=== PATIENT | female | born 1990 | race Caucasian/White ===

== ENCOUNTER 2025-01-13 23:43 | Emergency (ER) | payer SELFPAY ==
[2025-01-14 00:23] LABS: Hematocrit 43.3 % (37.0-47.0); Hemoglobin 14.6 g/dL (12.0-15.0); Immature Granulocyte Percent A 0.3 % (0-0.5); Lymphocytes Absolute Auto 3.17 K/mm3 (0.9-3.2); Mean Corpuscular HGB Conc 33.7 g/dl (32-36); Mean Corpuscular Hemoglobin 28.9 pg (26-34); Mean Corpuscular Volume 85.7 fl (80-100); Nucleated Red Blood Cells Absolute Auto 0.000 K/mm3 (0.0-0.012); Nucleated Red Blood Cells Perc 0.0 % (0.0-0.2); Platelet Count Result 369 k/mm3 (150-375); Red Blood Count 5.05 M/mm3 (4.2-5.4); White Blood Count 11.5 K/mm3 (4.5-10.0)
[2025-01-14 00:32] LABS: Add Urine Microscopic? YES; Appearance Urine Clear (Clear); Glucose Urine UA Negative (Negative); Leukocyte Esterase Ur 2+ LEU/UL (Negative); Nitrate Urine Negative (Negative); Non Pathogenic Casts 0-2; Specific Grav Ur 1.033 (1.001-1.035)
[2025-01-14 00:35] LABS: BEDSIDEPREGUCG Negative (Negative)
[2025-01-14 00:46] VITALS: BP 146/90; PULSE 91; RESP 18; TEMP 36.8; O2SAT 99
[2025-01-14 00:48] LABS: Cannabinoid Screen Urine Negative (Negative)
[2025-01-14 00:54] LABS: Influenza A QL RT-PCR Negative (Negative); Influenza B QL RT-PCR Negative (Negative); RSV RNA, RT-PCR Negative (Negative); SARS-CoV-2 RNA PCR Negative (Negative)
[2025-01-14 01:13] LABS: Thyroid Stimulating Hormone Reflex 3.080 uIU/mL (0.465-4.68)
[2025-01-14] MEDS: LORazepam (*CRX) 0.5 MG TABLET PO (01:30)
--- OUTSIDE RECORDS SUMMARY | 2025-01-14 01:32 | XMS_ITS | Clinical Summary ---
Author Organization [facility] Address [address] [place] [address] Care Team Providers Care Air Conditioning Technician Name Role Phone Lenin Whitmorejeanette Purvis HOSPITAL MEDICAL ASSISTANT-TERMINAL CLERK Primary Care Pr ovider Source Comments [facility],non-owned Affiliates and Associated Physician Practices is amultiple site organization consisting of ambulatory clinics and hospital sitesin [place], [place], [place] and [place]. This disclosure is being madepursuant to the Care Everywhere program and may not contain all information available regarding this patient. Last updated 18.[facility] Allergies No known active allergies Medications * Be aware that medications may not be up to date on this document. Alwaysverify current medications with the patient. fluticasone propionate (FLONASE) 50 MCG/ACT nasal sprayIndication s:Allergic rhinitis with postnasal drip [place] 2 (two) sprays into each nostril once daily 16 g 2 Active Additional Information Patient not taking.Reported on 04/10/2022 FLUoxetine (PROzac) 20 MG capsuleIndicati ons:Other depression Take 1 (one) capsule by mouth once daily 30 capsule 3 Active Active Problems Problem Noted Date Diagnosed Date Abnormal ultrasound of spine 10/20/2015 Encounter for supervision of normal first in second trimester 09/30/2015 Encounter for anatomic survey 09/30/2015 Immunizations Immunization Administration Dates Next Due DTP 08/02/1995,04/13/1994,12/11/1993 ,10/06/1993 DTaP VACCINE IM (6wk-6yrs) 11/16/2015,11/06/2014 ,01/18/1997 HEP B VACCINE, PED/ADOL 03/14/2004,01/07/2004, MMR 02/07/2016,01/18/1997,12/11/1993 POLIO OPV 01/18/1997,04/13/1994,12/11/1993 ,10/06/1993 TDAP (7yrs+) 11/07/2015,12/30/2006 Family History Medical History Relation Name Comments Diabetes; unknown type Brother Diabetes; unknown type Father Diabetes; unknown type Maternal Grandfather Cancer - Breast Maternal Grandmother Relation Name Status Comments Brother Father Maternal Grandfather Maternal Grandmother Social History Tobacco Use Types Packs/Day Years Used Date Smoking Tobacco: Never Smokeless Tobacco: Never Tobacco Cessation:Counseling Given: Not Answered Alcohol Use Standard Drinks/Week Comments Not Currently 0 (1 standard drink = 0.6 oz pur e alcohol) PHQ-2 Answer Date Recorded PHQ2 TOTAL SCORE 2 11/23/2022 Comments No Sex and Gender Information Value Date Recorded Sex Assigned at Not on file Legal Sex Female 11:20 AM CDT Gender Identity Not on file Sexual Orientation Not on file Last Filed Vital Signs Vital Sign Reading Time Taken Comments Blood Pressure 115/62 09/19/2021 11:13 AM CDT Pulse 78 09/19/2021 11:13 AM CDT Temperature 36.2 C (97.2 F) 09/19/2021 11:13 AM CDT Respiratory Rate 17 09/19/2021 11:13 AM CDT Oxygen Saturation 99% 09/19/2021 11:13 AM CDT Inhaled Oxygen Concentration - - Weight 73 kg (161 lb) 09/19/2021 11:13 AM CDT Height 160 cm (5' 3) 09/19/2021 11:13 AM CDT Body Mass Index 28.52 09/19/2021 11:13 AM CDT Plan of Treatment Health Maintenance Due Date Last Done Comments HIV SCREENING 11/29/2007 HEPATITIS C SCREENING 11/24/2010 PAP SMEAR 2013 HPV VACCINE (1 - 3-dose SCDM series) 11/29/2019 COVID-19 VACCINE ( season) 2024 03/22/2021, 02/15/2021 DEPRESSION SCREENING 06/24/2024 11/23/2022, 04/10/20 INFLUENZA VACCINE (#1) 2025 DTAP/TDAP/TD VACCINES (10 - Td or Tdap) 11/15/2025 11/16/2015, 11/07/2015, 11/06/2014, Additional history exists ZOSTER VACCINE (1 of 2) 2042 HEPATITIS B VACCINE Completed 03/14/2004, 01/07/2004, 01/08/2003 HIB VACCINE Aged Out No longer eligi ble based on patient's age to complete this topic MENINGOCOCCAL (Group B) VACCINE SHARED DECISION-MAKING Aged Out No longer eligible based on patient's age to complete this topic MENINGOCOCCAL GROUPS A/C/Y/W VACCINE Aged Out No longer eligible based on patient's age to complete this topic PNEUMOCOCCAL VACCINE Aged Out No long er eligible based on patient's age to complete this topic Care Teams Air Conditioning Technician Relationship Specialty Start Date End Date Henrietta Whitmore, CRYSTAL-TERMINAL CLERK [address] [place] [address] PCP - General Nurse Practitioner 08/04/21
--- OUTSIDE RECORDS SUMMARY | 2025-01-14 01:32 | XMS_ITS | Encounter Summary ---
Author Organization [facility] Address [address] [place] [address] Care Team Providers Care Guide Plant Name Role Phone Henrietta Whitmore [facility] Primary Care Pr ovider Reason for Visit * Reason Onset Date Comments MEDICATION REFILL 12/25/2022 Encounter Details Date Type Department Care Team (Late st Contact Info) Description 12/25/2022 Refill [facility] Medical [facility] - Family Medicine [address] [place] [address] Henrietta Whitmore [facility] [address] [place] [address] MEDICATION REFILL Social History Tobacco Use Types Packs/Day Years Used Date Smoking Tobacco: Never Smokeless Tobacco: Never Alcohol Use Standard Drinks/Week Comments Not Currently 0 (1 standard drink = 0.6 oz pur e alcohol) PHQ-2 Answer Date Recorded PHQ2 TOTAL SCORE 2 11/23/2022 Comments No Sex and Gender Information Value Date Recorded Sex Assigned at Not on file Legal Sex Female 11:20 AM CDT Gender Identity Not on file Sexual Orientation Not on file documented as of this encounter Plan of Treatment Not on file documented as of this encounter Visit Diagnoses Diagnosis Other depression documented in this encounter Care Teams Guide Plant Relationship Specialty Start Date End Date Henrietta Whitmore APRN-CNP [address] [place] [address] PCP - General Nurse Practitioner 08/04/21 documented as of this encounter
--- OUTSIDE RECORDS SUMMARY | 2025-01-14 01:32 | XMS_ITS | Encounter Summary ---
Author Organization [facility] Address [address] [place] [address] Care Team Providers Care Construction Supervisor Name Role Phone [facility] Primary Care Pr ovider Reason for Visit * Reason Onset Date Comments MEDICATION REFILL 11/21/2022 Encounter Details Date Type Department Care Team (Late st Contact Info) Description 11/21/2022 Refill [facility] Medical [facility] - Family Medicine [address] [place] [address] [facility] [address] [place] [address] MEDICATION REFILL Social History Tobacco Use Types [...] depression documented in this encounter Care Teams Construction Supervisor Relationship Specialty Start Date End Date Henrietta Whitmore APRN-CNP [address] [place] [address] PCP - General Nurse Practitioner 08/04/21 documented as of this encounter
--- OUTSIDE RECORDS SUMMARY | 2025-01-14 01:32 | XMS_ITS | Encounter Summary ---
Author Organization [facility] Address [address] [place] [address] Care Team Providers Care Quality Assurance Coach Name Role Phone Henrietta [facility] Primary Care Pr ovider Reason for Visit * Reason Onset Date Comments MEDICATION REFILL 11/20/2022 Encounter Details Date Type Department Care Team (Late st Contact Info) Description 11/20/2022 Refill [facility] Medical [facility] - Family Medicine [address] [place] [address] Henrietta Whitmore [facility] [address] [place] [address] MEDICATION REFILL Social History Tobacco Use Types [...] depression documented in this encounter Care Teams Quality Assurance Coach Relationship Specialty Start Date End Date Henrietta Whitmore APRN-CNP [address] [place] [address] PCP - General Nurse Practitioner 08/04/21 documented as of this encounter
--- OUTSIDE RECORDS SUMMARY | 2025-01-14 01:32 | XMS_ITS | Clinical Summary ---
Author Organization [facility] Address [address] [place] [address] Care Team Providers Care Automatic Pinsetter Adjuster Name Role Phone Unavailable Primary Care Provider Unavailabl e Social History Tobacco Use Types Packs/Day Years Used Date Smoking Tobacco: Never Assessed Comments Unknown Sex and Gender Information Value Date Recorded Sex Assigned at Not on file Legal Sex Female 4:41 PM CDT Gender Identity Not on file Sexual Orientation Not on file Plan of Treatment Health Maintenance Due Date Last Done Comments Cervical Cancer Screening Pa p Smear (Age 30 to 64) Every 3 Years 1992 Annual Physical 11/29/1995 Hepatitis C 2010 DTaP, Tdap and Td Vaccines ( 1 - Tdap) 11/29/2011 Hepatitis B Vaccines (1 of 3 - 19+ 3-dose series) 11/29/2011 HPV Vaccines (1 - 3-dose SCD M series) 11/29/2019 Cervical Cancer Screening Pa p with HPV Testing (Age 30 to 64) Every 5 Years 2022 Cervical Cancer Screening with HPV 2022 COVID-19 Vaccine ( - 2023-2 5 season) 2024 Meningococcal B Vaccine Aged Out No l onger eligible based on patient's age to complete this topic Meningococcal Vaccine Aged Out No ana emily eligible based on patient's age to complete this topic Pneumococcal Vaccine: Pediat rics (0 to 5 Years) and At-Risk Patients (6 to 49 Years) Aged Out No longer eligible b ased on patient's age to complete this topic RSV Immunizations Under 20 Months Aged Out No longer eligible based on patient's age to complete this topic
--- OUTSIDE RECORDS SUMMARY | 2025-01-14 01:32 | XMS_ITS | Encounter Summary ---
Author Organization [facility] Address [address] [place] [address] Care Team Providers Care Coffee Maker Name Role Phone Henrietta Whitmore [facility] Primary Care Pr ovider Reason for Visit * Reason Onset Date Comments MEDICATION REFILL 07/12/2022 Encounter Details Date Type Department Care Team (Late st Contact Info) Description 07/12/2022 Refill [facility] Medical [facility] - Family Medicine [address] [place] [address] Henrietta Whitmore [facility] [address] [place] [address] MEDICATION REFILL Social History Tobacco Use Types Packs/Day Years Used Date Smoking Tobacco: Never Smokeless Tobacco: Never Alcohol Use Standard Drinks/Week Comments Not Currently 0 (1 standard drink = 0.6 oz pur e alcohol) PHQ-2 Answer Date Recorded PHQ2 TOTAL SCORE 2 04/09/2022 Comments No Sex and Gender Information Value Date Recorded Sex Assigned at Not on file Legal Sex Female 11:20 AM CDT Gender Identity Not on file Sexual Orientation Not on file documented as of this encounter Plan of Treatment Not on file documented as of this encounter Visit Diagnoses Diagnosis Other depression documented in this encounter Care Teams Coffee Maker Relationship Specialty Start Date End Date Henrietta Whitmore APRN-CNP [address] [place] [address] PCP - General Nurse Practitioner 08/04/21 documented as of this encounter
[2025-01-14 01:59] LABS: Alanine Aminotransferase 41 U/L (6-35); Albumin Level 5.1 g/dL (3.5-5.1); Alkaline Phosphatase 58 U/L (38-126); Anion Gap 12 mmol/L (4-12); Aspartate Amino Transferase 34 U/L (14-36); Bilirubin,Total 0.6 mg/dL (0.2-1.3); Blood Urea Nitrogen 11 mg/dL (7-17); Calcium 9.5 mg/dL (8.4-10.2); Carbon Dioxide 20 mmol/L (22-30); Chloride 103 mmol/L (98-107); Estimated CRCL calculation 100 ml/min; Estimated Glomerular Filt Rate > 60; Glucose 104 mg/dL (65-110); Potassium 3.7 mmol/L (3.4-5.0); Sodium 135 mmol/L (137-145); Total Protein 8.3 g/dL (6.3-8.2)
--- NOTE | 2025-01-14 02:29 | ED.PSYCH ---
HPI - Psych General Chief Complaint: Psychiatric Symptoms Stated Complaint: SI thoughts Time Seen by Provider: 01/14/25 01:16 Source: patient and family Mode of arrival: ambulatory Limitations: no limitations History of Present Illness HPI Narrative: Patient presents to the emergency department with reported increased anxiety. States she has a history of anxiety and depression. She had reported some suicidal thoughts such as wishing she was not here anymore. She states that she has a history of having obsessive thoughts and intrusive thoughts. She denies any specific plan she in general feels like she is spiraling. She previously been on medication but states she has been off of medications for a while due to side effects. Has never required mental health hospitalization. She also feels depressed. Decreased p.o. intake. She notes that she will experience chest pain and shortness of breath when she has panic attacks. She has been having low abdominal pain. She denies any dysuria she does note a tingling sensation has been having urinary urgency and frequency but no hematuria. She had vaginal discharge. Denies any homicidal ideation. She states that occasionally she will think she see something lot of the corner of her eye does not endorse any specific visual hallucinations. 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 HEAD: Normocephalic, atraumatic. EYES: Non injected, non icteric ENT: Nares clear, no rhinorrhea or epistaxis. Gross auditory acuity intact. NECK: Supple. No meningismus. CHEST: Speaking in full sentences. No respiratory distress. HEART: Regular rate and rhythm. . ABDOMEN: Soft, nondistended. EXTREMITIES: Normal range of motion. No lower extremity edema. SKIN: Warm, dry, no rash. NEURO: No focal deficits. Alert and oriented. Answering questions. Following commands. Normal speech without aphasia or dysarthria. PSYCH: Behavior: Calm, good eye contact . Mood is congruent with affect. Speech: Appropriate rate, quantity and volume. Has been having suicuidal thoughts without plan. Course Vital Signs Vital signs: Vital Signs Temperature 98.3 F 01/14/25 00:46 Pulse Rate 91 01/14/25 00:46 Respiratory Rate 18 01/14/25 00:46 Blood Pressure 146/90 H 01/14/25 00:46 Pulse Oximetry 99 01/14/25 00:46 Oxygen Delivery Room Air 01/14/25 00:46 Temperature 98.1 F 01/14/25 05:55 Pulse Rate 68 01/14/25 05:55 Respiratory Rate 18 01/14/25 05:55 Blood Pressure 121/74 01/14/25 05:55 Pulse Oximetry 99 01/14/25 05:55 Oxygen Delivery Room Air 01/14/25 00:46 MDM - Psych MDM Narrative Medical decision making narrative: Patient presents with report suicidal thoughts. She has a history of anxiety and depression and believes that she is becoming more anxious with obsessive and intrusive thoughts. Feels like she is spiraling. In the emergency department she is afebrile vital signs notable for mild hypertension. Mild leukocytosis. Mild ALT elevation in isolation. Normal renal function. Patient had endorsed feeling anxious and so a small p.o. dose of Ativan was given. She reported feeling better to the nurse after this. Abnormal or urinalysis. Reflexes to culture. Because she is having symptoms with a tingling sensation and increased urinary urgency and frequency and suprapubic pain, reasonable to treat. No previous culture to guide therapy. Will give 1st dose of Keflex as well as a dose of pyridium. Rest of course Rx. At this time patient is medically cleared for evaluation by psych/crisis team. After their extensive conversation, They felt comfortable with safety plan and discharge and this is reasonable. In discussion with patient, with input from crisis team, and based on my own professional judgment, I do believe patient would benefit from a short course of a few tablets of an anxiolytic while she attempts to establish with a healthcare provider for longer-term management an alternative strategies. She is given the name of a primary care physician as she does not currently have 1. Crisis team provides her resources. Differential Diagnosis Differential diagnosis: Likely suicidal ideation, depression and acute anxiety Lab Data Attestation: I reviewed the patient's lab results. 01/14/25 00:09 01/14/25 01:38 Labs: Lab Results 01/14/25 01/14/25 01/14/25 Range/Units 00:09 00:16 00:22 WBC 11.5 H (4.5-10.0) K/mm3 RBC 5.05 (4.2-5.4) M/mm3 Hgb 14.6 (12.0-15.0) g/dL Hct 43.3 (37.0-47.0) % MCV 85.7 (80-100) fl MCH 28.9 (26-34) pg MCHC 33.7 (32-36) g/dl RDW 12.9 (11.5-14.5) % Plt Count 369 (150-375) k/mm3 MPV 10.4 (7.4-10.4) fl Immature Gran % (Auto) 0.3 (0-0.5) % Neut % (Auto) 67.8 (45.5-73.1) % Lymph % (Auto) 27.6 (18.3-44.2) % [place] % (Auto) 3.8 (2.6-8.5) % Eos % (Auto) 0.1 (0-4.4) % Baso % (Auto) 0.4 (0.2-1.2) % Lymph # (Auto) 3.17 (0.9-3.2) K/mm3 [place] # (Auto) 0.4 (0.1-0.6) K/mm3 Eos # (Auto) 0.0 (0-0.3) K/mm3 Baso # (Auto) 0.1 (0.0-0.1) K/mm3 Abs Immat Gran (auto) 0.03 (0.00-0.031) K/mm3 Absolute Neuts (auto) 7.8 H (1.3-6.7) K/mm3 Absolute Nucleated RBC 0.000 (0.0-0.012) K/mm3 Nucleated RBC % 0.0 (0.0-0.2) % Sodium (137-145) mmol/L Potassium (3.4-5.0) mmol/L Chloride (98-107) mmol/L Carbon Dioxide (22-30) mmol/L Anion Gap (4-12) mmol/L BUN (7-17) mg/dL Creatinine (0.7-1.0) mg/dL Estim Creat Clear Calc ml/min Estimated GFR (59 - ) Glucose (65-110) mg/dL Calcium (8.4-10.2) mg/dL Total Bilirubin (0.2-1.3) mg/dL AST (14-36) U/L ALT (6-35) U/L Alkaline Phosphatase (38-126) U/L Total Protein (6.3-8.2) g/dL Albumin (3.5-5.1) g/dL TSH (Reflex) 3.080 (0.465-4.68) uIU/mL Urine Color Yellow (Yellow) Urine Appearance Clear (Clear) Urine pH 5.5 (5.0-9.0) Ur Specific [place] 1.033 (1.001-1.035) Urine Protein Trace (Negative) mg/dL Urine Glucose (UA) Negative (Negative) mg/dL Urine Ketones 3+ H (Negative) mg/dL Ur Blood (Man) Trace (Negative) Urine Nitrate Negative (Negative) Urine Bilirubin Negative (Negative) Urine Urobilinogen 1.0 (<2.0) mg/dL Leukocyte Esterase Rfl 2+ H (Negative) JENNI/UL Urine RBC 3-5 H (0-2) /hpf Urine WBC 21-50 H (0-3) /hpf Ur Squamous Epith Cells Few (Few) /hpf Urine Bacteria Rare /hpf Urine Casts 0-2 POC Urine HCG, Qual Negative (Negative) Urine Opiates Screen Negative (Negative) Urine Methadone Screen Negative (Negative) Ur Barbiturates Screen Negative (Negative) Ur Phencyclidine Scrn Negative (Negative) Ur Amphetamine Screen Negative (Negative) U Benzodiazepines Scrn Negative (Negative) Urine Cocaine Screen Negative (Negative) U Cannabinoids Screen Negative (Negative) Ethyl Alcohol < 10 (<10) mg/dL Influenza A (RT-PCR) Negative (Negative) Influenza B (RT-PCR) Negative (Negative) RSV (RT-PCR) Negative (Negative) SARS-CoV-2 RNA (RT-PCR) Negative (Negative) 01/14/25 Range/Units 01:38 WBC (4.5-10.0) K/mm3 RBC (4.2-5.4) M/mm3 Hgb (12.0-15.0) g/dL Hct (37.0-47.0) % MCV (80-100) fl MCH (26-34) pg MCHC (32-36) g/dl RDW (11.5-14.5) % Plt Count (150-375) k/mm3 MPV (7.4-10.4) fl Immature Gran % (Auto) (0-0.5) % Neut % (Auto) (45.5-73.1) % Lymph % (Auto) (18.3-44.2) % [place] % (Auto) (2.6-8.5) % Eos % (Auto) (0-4.4) % Baso % (Auto) (0.2-1.2) % Lymph # (Auto) (0.9-3.2) K/mm3 [place] # (Auto) (0.1-0.6) K/mm3 Eos # (Auto) (0-0.3) K/mm3 Baso # (Auto) (0.0-0.1) K/mm3 Abs Immat Gran (auto) (0.00-0.031) K/mm3 Absolute Neuts (auto) (1.3-6.7) K/mm3 Absolute Nucleated RBC (0.0-0.012) K/mm3 Nucleated RBC % (0.0-0.2) % Sodium 135 L (137-145) mmol/L Potassium 3.7 (3.4-5.0) mmol/L Chloride 103 (98-107) mmol/L Carbon Dioxide 20 L (22-30) mmol/L Anion Gap 12 (4-12) mmol/L BUN 11 (7-17) mg/dL Creatinine 0.65 L (0.7-1.0) mg/dL Estim Creat Clear Calc 100 ml/min Estimated GFR > 60 (59 - ) Glucose 104 (65-110) mg/dL Calcium 9.5 (8.4-10.2) mg/dL Total Bilirubin 0.6 (0.2-1.3) mg/dL AST 34 (14-36) U/L ALT 41 H (6-35) U/L Alkaline Phosphatase 58 (38-126) U/L Total Protein 8.3 H (6.3-8.2) g/dL Albumin 5.1 (3.5-5.1) g/dL TSH (Reflex) (0.465-4.68) uIU/mL Urine Color (Yellow) Urine Appearance (Clear) Urine pH (5.0-9.0) Ur Specific [place] (1.001-1.035) Urine Protein (Negative) mg/dL Urine Glucose (UA) (Negative) mg/dL Urine Ketones (Negative) mg/dL Ur Blood (Man) (Negative) Urine Nitrate (Negative) Urine Bilirubin (Negative) Urine Urobilinogen (<2.0) mg/dL Leukocyte Esterase Rfl (Negative) JENNI/UL Urine RBC (0-2) /hpf Urine WBC (0-3) /hpf Ur Squamous Epith Cells (Few) /hpf Urine Bacteria /hpf Urine Casts POC Urine HCG, Qual (Negative) Urine Opiates Screen (Negative) Urine Methadone Screen (Negative) Ur Barbiturates Screen (Negative) Ur Phencyclidine Scrn (Negative) Ur Amphetamine Screen (Negative) U Benzodiazepines Scrn (Negative) Urine Cocaine Screen (Negative) U Cannabinoids Screen (Negative) Ethyl Alcohol (<10) mg/dL Influenza A (RT-PCR) (Negative) Influenza B (RT-PCR) (Negative) RSV (RT-PCR) (Negative) SARS-CoV-2 RNA (RT-PCR) (Negative) Discharge Plan Discharge Clinical Impression: Suicidal thoughts, Elevated ALT measurement, Anxiousness, UTI (urinary tract infection) Patient Disposition: Home Condition: Stable Instructions: Antibiotic Form, Urinary Tract Infection in Women (DC), Generalized Anxiety Disorder (ED), Anxiety (ED), Suicide Prevention (ED) Additional Instructions: Pyridium/phenazopyridine can help with the pain you are experiencing from a urinary tract infection. It can discolor your urine and tears (turn them orange). Do not wear contact lenses while taking this medication. Your course of antibiotic has also been prescribed. You received the 1st dose of both of these medications well in the emergency department. Until you are able to establish with someone, a short course of an anti anxiety medication has been prescribed. Follow-up with a primary care physician. Because you do not have 1 the name of a doctor is listed below. You are also being given resources by our crisis team. Patient Language: Chilean Prescriptions: New phenazopyridine 100 mg tablet 100 mg PO TID PRN (Reason: pain) 2 Days Qty: 5 0RF Rx Instructions: after meals; rec'd first dose in ED overnight cephalexin 500 mg tablet 500 mg PO Q6H 5 Days Qty: 19 0RF Rx Instructions: received first dose in ED lorazepam [Ativan] 0.5 mg tablet 0.5 mg PO DAILY PRN (Reason: anxiety) Qty: 10 0RF Follow-up/Referrals: PHYSICIAN,TELEVISION SERVICE ENGINEER [Primary Care Provider] - Aleks Kumar MD [Physician] - Stand Alone Forms: Work/School Release IP Time of Disposition: 05:42
--- NOTE | 2025-01-14 02:34 | PC.NURSE ---
Contacted Crisis and referral has bleed placed. Referral placed by Yessi.
[2025-01-14 03:19] VITALS: BP 132/71; PULSE 81; RESP 18; TEMP 36.6; O2SAT 98
[2025-01-14] MEDS: PHENAZOPYRIDINE HCL 100 MG TABLET PO (03:19)
[2025-01-14] MEDS: CEPHALEXIN 500 MG CAPSULE PO (03:19)
--- NOTE | 2025-01-14 03:56 | PC.NURSE ---
Crisis here to evaluate patient
[2025-01-14 05:55] VITALS: BP 121/74; PULSE 68; RESP 18; TEMP 36.7; O2SAT 99
== END 2025-01-14 05:58 | disposition home or self-care (01) ==
PROVIDERS: Emergency Provider Student in an Organized Health Care Education/Training Program
DX: R45.851 Suicidal ideations (principal); F41.9 Anxiety disorder, unspecified; F32.A Depression, unspecified; Z11.52 Encounter for screening for COVID-19
CPT/HCPCS: 36415; 80053; 80307; 81001; 81025; 82077; 84443; 85025; 87637; 99284; A9270

== ENCOUNTER 2025-01-17 15:12 | Emergency (ER) | payer SELFPAY ==
--- OUTSIDE RECORDS SUMMARY | 2025-01-17 15:15 | XMS_ITS | Clinical Summary ---
Author Organization [facility] Address [address] [place] [address] Care Team Providers Care Actuarial Analyst Name Role Phone Unavailable Primary Care Provider [...]
--- OUTSIDE RECORDS SUMMARY | 2025-01-17 15:15 | XMS_ITS | Patient Health Record ---
Author Organization [facility] Address [address] [address] Care Team Providers Care Rotor Casting Machine Setup Operator Name Role Phone LUZ CARLISLE Primary Care Provider Damon Neil Unavailable [phone] Reason For Referral No Information Social History Tobacco Use: Social History Observation Description Date Details (start date - stop date) Never Smoker NA - NA TU Question Answer Notes Are you a smoker never smoker Problems Problem Type SNOMED Code ICD Code Onset Dates Problem Status W/U Status Risk Notes Problem Right thyroid nodule (E04.1) Active confirmed Plan Of Treatment No Information Medical (General) History Medical History History ICD Code Thyroid Nodule Hyperglycemia Surgical History Surgery Date(Month/Year) C section 02/06
--- OUTSIDE RECORDS SUMMARY | 2025-01-17 15:15 | XMS_ITS | Encounter Summary ---
Author Organization [facility] Address [address] [place] [address] Care Team Providers Care Net Lead Developer Name Role Phone [facility] Primary Care Pr ovider Reason for Visit * Reason Onset Date Comments MEDICATION REFILL 12/25/2022 Encounter Details Date Type Department Care Team (Late st Contact Info) Description 12/25/2022 Refill [facility] Medical [facility] - Family Medicine [address] [place] [address] [facility] [address] [place] [address] MEDICATION REFILL Social History Tobacco Use Types [...] depression documented in this encounter Care Teams Net Lead Developer Relationship Specialty Start Date End Date Henrietta Whitmore APRN-CNP [address] [place] [address] PCP - General Nurse Practitioner 08/04/21 documented as of this encounter
--- OUTSIDE RECORDS SUMMARY | 2025-01-17 15:15 | XMS_ITS | Clinical Summary ---
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 reviewed and interpreted this examination/study. > Interpreting Provider: Flakita Rivero on 01/15/2025 8:25 AM Ruddy Cao DO DIAGNOSTIC IMAGING ORDERABLE S Final Result * XR Tibia Fibula Right 2Vw (01/15/2025 12:02 AM CDT) Anatomical Region Laterality Modality Lower Extremity Digital Radiogra phy 01/15/2025 2:41 AM CDT Impressions 01/15/2025 8:27 AM CDT IMPRESSION: No acute tibial or fibular fracture identified. Report dictated by Estiven Wilson DO (dental resident). Flakita Claudio have personally reviewed and interpreted this examination/study. > Interpreting Provider: Flakita Rivero on 01/15/2025 8:27 AM Narrative 01/15/2025 8:27 AM CDT PROCEDURE: XR TIBIA FIBULA RIGHT 2VW, DATE/TIME OF EXAM: 01/15/2025 12:02 AM, LOCATION [facility] INDICATION: T14.90XA: Trauma ADDITIONAL CLINICAL INFORMATION: Ordering Provider Reason For Exam: ro frx, DETENTION COMPARISON: None. FINDINGS: The tibia and fibula are intact without evidence of acute fracture. Bone density and texture are normal. No soft tissue swelling is present. Procedure Note Flakita Moreno MD - 01/15/2025 PROCEDURE: XR TIBIA FIBULA RIGHT 2VW, DATE/TIME OF EXAM: 2:02 AM, LOCATION [facility] INDICATION: T14.90XA: Trauma ADDITIONAL CLINICAL INFORMATION: Ordering Provider Reason For Exam: ro frx, DETENTION COMPARISON: None. FINDINGS: The tibia and fibula are intact without evidence of acute fracture. Bone density and texture are normal. No soft tissue swelling is present. IMPRESSION: No acute tibial or fibular fracture identified. Report dictated by Estiven Wilson DO (dental resident). Flakita Claudio have personally reviewed and interpreted this examination/study. > Interpreting Provider: Flakita Rivero on 01/15/2025 8:27 AM Ruddy R Bisesi DO DIAGNOSTIC IMAGING ORDERABLE S Final Result * XR CHEST 1VW PORTABLE (01/15/2025 12:01 AM CDT) Anatomical Region Laterality Modality Chest Digital Radiogra phy 01/15/2025 2:34 AM CDT Impressions 01/15/2025 8:23 AM CDT IMPRESSION: No radiographic evidence of acute cardiopulmonary abnormality. This report was dictated by Hudson Galvan M.D. (/IR Resident). Flakita Claudio have personally reviewed and interpreted this examination/study. > Interpreting Provider: Flakita Rivero on 01/15/2025 8:23 AM Narrative 01/15/2025 8:23 AM CDT PROCEDURE: XR CHEST 1VW PORTABLE, DATE/TIME OF EXAM: 01/15/2025 12:01 AM, [facility] INDICATION: T14.90XA: Trauma COMPARISON: None. TECHNIQUE: Single portable frontal radiograph of the chest was obtained with the patient in the semierect position. FINDINGS Low lung volumes leads to bronchovascular crowding bilaterally. There is no focal consolidation, pleural effusion, or pneumothorax. Prominent lucency surrounding the heart likely representing mach effect given lack of streaky linear opacities elsewhere and no complaints of chest pain. The mediastinum otherwise appears normal. The visible bony thorax is intact. Procedure Note Flakita Moreno MD - 01/15/2025 PROCEDURE: XR CHEST 1VW PORTABLE, DATE/TIME OF EXAM: 01/15/2025 12:01AM, LOCATION [facility] INDICATION: T14.90XA: Trauma COMPARISON: None. TECHNIQUE: Single portable frontal radiograph of the chest was obtained with the patient in the semierect position. FINDINGS Low lung volumes leads to bronchovascular crowding bilaterally. There isno focal consolidation, pleural effusion, or pneumothorax. Prominentlucency surrounding the heart likely representing mach effect given lack ofstreaky linear opacities elsewhere and no complaints of chest pain. Themediastinum otherwise appears normal. The visible bony thorax is intact. IMPRESSION: No radiographic evidence of acute cardiopulmonary abnormality. This report was dictated by Hudson Galvan M.D. (/IR Resident). I, Flakita Rivero have personally reviewed and interpreted this examination/study. > Interpreting Provider: Flakita Rivero on 01/15/2025 8:23 AM Ruddy Cao DO DIAGNOSTIC IMAGING ORDERABLE S Final Result * TYPE + SCREEN PANEL (01/14/2025 11:36 PM CDT) Antibody Screen NEG 12:23 AM CDT [facility] ABO Rh O POS 01/15/2025 12:23 AM CDT [facility] Blood Bank BLOOD SPECIMEN / Unknown Venipuncture / Unknown 01/14/2025 11:36 PM CDT 01/14/2025 11:46 PM CDT [facility]OD [facility] ORDERABLES Final Result Performing Organization Address City/[facility]/ZIP Co de Phone Number [facility] [address] [place] [address], [facility] [phone] * PTT (01/14/2025 11:36 PM CDT) APTT 26.4 23.0 - 38.4 Seconds 01/15/2025 12:23 AM CDT [facility] Comment:Suggested therapeuti c range for full dose I.V. unfractionated heparin therapy for venous thromboembolism is 71 to 109 seconds. Blood BLOOD SPECIMEN / Unknown Venipuncture / Unknown 01/14/2025 11:36 PM CDT 01/14/2025 11:49 PM CDT [facility] LAB - COAGULATION ORDERABLES Final Result [facility] [address] [place] [address], [place] [phone] * PT-INR (01/14/2025 11:36 PM CDT) PT 13.0 12.1 - 14.8 Seconds 01/15/2025 12:[facility].0 See Comment 01/15/2025 12:23 AM [facility] Comment:The suggested therap eutic range for standard coumadin (warfarin) therapy is an INR of 2.0-3.0. For high-risk patients (Mechanical Mitral Valve Prosthesis, etc.), the suggested prophylactic therapeutic range is an INR of 2.5-3.5. Blood BLOOD SPECIMEN / Unknown Venipuncture / Unknown 01/14/2025 11:36 PM CDT 01/14/2025 11:49 PM CDT us Ruddy Cao DO LAB - COAGULATION ORDERABLES Final Result [facility] [address] [place] [address], [facility] [phone] * (ABNORMAL) CBC W AUTO DIFFERENTIAL (01/14/2025 11:36 PM CDT) WBC 18.4(H) 4.0 - 10.7 x10E9/L 01/14/2025 11:56 PM [facility] RBC Count 4.92 3.90 - 5.20 x10E12/L 01/14/2025 11:56 PM [facility] Hemoglobin 14.1 11.9 - 15.8 g/dL 01/14/2025 11:56 PM [facility] Hematocrit 41.2 34.8 - 46.1 % 01/14/2025 11:56 PM [facility] MCV 83.7 80.0 - 98.0 fL 01/14/2025 11:56 PM [facility] MCH 28.7 26.7 - 33.6 pg 01/14/2025 11:56 PM [facility] MCHC 34.2 31.7 - 36.3 g/dL 01/14/2025 11:56 PM [facility] RDW-CV 12.9 11.3 - 14.8 % 01/14/2025 11:56 PM [facility] Platelet Count 351 150 - 420 x10E9/L 01/14/2025 11:56 PM [facility] MPV 11.0 7.8 - 11.4 fL 01/14/2025 11:56 PM [facility] Neutrophil % 82.6(H) 41.0 - 74.0 % 01/14/2025 11:56 PM [facility] Lymphocyte % 12.7(L) 17.0 - 47.0 % 01/14/2025 11:56 PM [facility] Monocyte % 3.9 3.0 - 11.0 % 01/14/2025 11:56 PM [facility] Eosinophil % 0.1 0.0 - 7.0 % 01/14/2025 11:56 PM [facility] Basophil % 0.4 0.0 - 1.6 % 01/14/2025 11:56 PM [facility] Immature Granulocytes % 0.3 0.0 - 1.0 % 01/14/2025 11:56 PM [facility] Neutrophil Absolute 15.18(H) 1.60 - 7.50 x10E9/L 01/14/2025 11:56 PM [facility] Lymphocyte Absolute 2.33 1.00 - 4.40 x10E9/L 01/14/2025 11:56 PM [facility] Monocyte Absolute 0.72 0.15 - 1.00 x10E9/L 01/14/2025 11:56 PM [facility] Eosinophil Absolute 0.02 0.00 - 0.60 x10E9/L 01/14/2025 11:56 PM [facility] Basophil Absolute 0.07 0.00 - 0.13 x10E9/L 01/14/2025 11:56 PM [facility] Blood BLOOD SPECIMEN / Unknown Venipuncture / Unknown 01/14/2025 11:36 PM CDT 01/14/2025 11:49 PM [facility] [place][NOTE 2] Ruddy Cao DO LAB - HEMATOLOGY ORDERABLES Final Result [facility] [address] [place] [address], [facility] [phone] * (ABNORMAL) BASIC METABOLIC PANEL (CALCIUM TOTAL) (01/14/2025 11:36 PM CDT) BUN 12 7 - 26 mg/dL 01/15/2025 12:20 AM [facility] Creatinine 0.67 0.56 - 0.96 mg/dL 01/15/2025 12:20 AM [facility] Sodium 138 136 - 145 mmol/L 01/15/2025 12:20 AM [facility] Potassium 3.5 3.5 - 4.5 mmol/L 01/15/2025 12:20 AM [facility] Chloride 107 98 - 107 mmol/L 01/15/2025 12:20 AM [facility] CO2 20(L) 22 - 29 mmol/L 01/15/2025 12:20 AM [facility] Glucose 95 70 - 99 mg/dL 01/15/2025 12:20 AM [facility] Calcium 9.2 8.4 - 10.2 mg/dL 01/15/2025 12:20 AM [facility] Anion Gap 11 6 - 16 01/15/2025 12:20 AM [facility] BUN/Creatinine Ratio 18 7 - 23 01/15/2025 12:20 AM [facility] Osmolality Calculated 286 275 - 295 mOsm/kg 01/15/2025 12:20 AM [facility] eGFR by CKD-EPI >90 >=90 mL/min/1.7 3 m2 01/15/2025 12:20 AM [facility] Comment:Estimated Glomerular Filtration Rate (eGFR) calculated using the CKD-EPI Creatinine Equation (2020), per the National Kidney Foundation and [place] Society of Nephrology recommendations. Blood BLOOD SPECIMEN / Unknown Venipuncture / Unknown 01/14/2025 11:36 PM CDT 01/14/2025 11:49 PM CDT us Ruddy Cao DO LAB - CHEMISTRY ORDERABLES F inal Result [facility] [address] [place] [address], [facility] [phone] * LIPASE BLOOD (01/14/2025 11:36 PM CDT) Lipase 24 8 - 78 U/L 01/15/2025 12:20 AM CDT [facility] Blood BLOOD SPECIMEN / Unknown Venipuncture / Unknown 01/14/2025 11:36 PM CDT 01/14/2025 11:49 PM CDT Narrative [facility] - 01/15/2025 12:20 AM CDT Lipase results from the [employer] Alinity analyzer may not be comparable with other methodologies. [employer] LAB - CHEMISTRY ORDERABLES F inal Result Performing Organization Address City/[facility]/ZIP Co de Phone Number [address] [address], [facility] [phone] * ALCOHOL ETHYL BLOOD (01/14/2025 11:36 PM CDT) Ethanol (mg/dL) <10 <10 mg/dL 12:20 AM CDT [facility] Ethanol Calculated (g/dL) <0.010 <=0.010 g/dL 01/15/2025 12:20 AM CDT [facility] Blood BLOOD SPECIMEN / Unknown Venipuncture / Unknown 01/14/2025 11:36 PM CDT 01/14/2025 11:49 PM CDT Narrative [facility] - 01/15/2025 12:20 AM CDT Ethanol Interp <10: None Detected. Depression of WHEELMAN: >100 mg/dl Potentially Critical: >250 mg/dl Potentially Fatal >400 mg/dl Ethanol in the patient's blood will contribute to the osmolar gap. Ethanol's contribution to the osmolar gap can be estimated by dividing the concentration of ethanol in mg/dL by 4.6. This test is for clinical use only and does not equal a JEWELL for legal purposes. [employer] DO LAB - CHEMISTRY ORDERABLES F inal Result Performing Organization Address City/[facility]/ZIP Co de Phone Number [address] [address], [place] [phone] from Last 3 Months Insurance [employer] Care Teams Administration Physician Relationship Specialty Start Date End Date Henrietta Whitmore, PROFESSIONAL DEVELOPMENT DIRECTOR-[employer] TEXTILE SUPERVISOR [address] [place] [address] PCP - General Nurse Practitioner 08/04/21
--- OUTSIDE RECORDS SUMMARY | 2025-01-17 15:15 | XMS_ITS | Encounter Summary ---
Author Organization [facility] Address [address] [place] [address] Care Team Providers Care Waiter/Waitress Counter Name Role Phone Henrietta Whitmore [facility] Primary Care Pr ovider Reason for Visit * Reason Onset Date Comments MEDICATION REFILL 11/20/2022 Encounter Details Date Type Department Care Team (Late st Contact Info) Description 11/20/[address] [facility] Medical [facility] - Family Medicine [address] [place] [address] Henrietta Whitmore [facility] [address] [place] [address] MEDICATION REFILL Social History Tobacco Use Types [...] depression documented in this encounter Care Teams Waiter/Waitress Counter Relationship Specialty Start Date End Date Henrietta Whitmore APRN-CNP [address] [place] [address] PCP - General Nurse Practitioner 08/04/21 documented as of this encounter
--- OUTSIDE RECORDS SUMMARY | 2025-01-17 15:15 | XMS_ITS | Encounter Summary ---
Author Organization [facility] Address [address] [place] [address] Care Team Providers Care Transit Clerk Name Role Phone Henrietta Whitmore [facility] Primary Care Pr ovider Reason for Visit * Reason Onset Date Comments MEDICATION REFILL 11/21/2022 Encounter Details Date Type Department Care Team (Late st Contact Info) Description 11/21/2022 Refill [facility] Medical [facility] - Family Medicine [address] [place] [address] Henrietta Whitmore [facility] [address] [place] [address] MEDICATION REFILL Social History Tobacco Use Types [...] depression documented in this encounter Care Teams Transit Clerk Relationship Specialty Start Date End Date Henrietta Whitmore APRN-CNP [address] [place] [address] PCP - General Nurse Practitioner 08/04/21 documented as of this encounter
--- OUTSIDE RECORDS SUMMARY | 2025-01-17 15:15 | XMS_ITS | Encounter Summary ---
Author Organization [facility] Address [address] [place] [address] Care Team Providers Care Grocery Store Clerk Name Role Phone [facility]etta [facility] Primary Care Pr ovider Reason for Visit * Reason Onset Date Comments MEDICATION REFILL 07/12/2022 Encounter Details Date Type Department Care Team (Late st Contact Info) Description 07/12/2022 Refill [facility] Medical [facility] - Family Medicine [address] [place] [address] Henrietta [facility] [address] [place] [address] MEDICATION REFILL Social History Tobacco Use Types [...] depression documented in this encounter Care Teams Grocery Store Clerk Relationship Specialty Start Date End Date Henrietta Whitmore APRN-CNP [address] [place] [address] PCP - General Nurse Practitioner 08/04/21 documented as of this encounter
[2025-01-17 15:18] VITALS: BP 157/96; PULSE 97; RESP 18; TEMP 37.3; O2SAT 99
[2025-01-17 15:57] VITALS: BP 118/68; PULSE 74; RESP 16; TEMP 36.6; O2SAT 100
--- OUTSIDE RECORDS SUMMARY | 2025-01-17 16:20 | XMS_ITS | Clinical Summary ---
Author Organization [facility] Address [address] [place] [id number] Care Team Providers Care Nuclear Control Room Operator Name Role Phone Unavailable Primary Care Provider [...]
--- OUTSIDE RECORDS SUMMARY | 2025-01-17 16:20 | XMS_ITS | Encounter Summary ---
Author Organization [facility] Address [address] [place] [address] Care Team Providers Care Grounds Manager Name Role Phone Henrietta Whitmore [facility] Primary Care Pr ovider Reason for Visit * Reason Onset Date Comments MEDICATION REFILL 12/25/2022 Encounter Details Date Type Department Care Team (Late st Contact Info) Description 12/25/2022 Refill [facility] Medical [facility] - Family Medicine [address] [place] [address] Henrietta Whitmore [facility] [address] [place] [address] MEDICATION REFILL Social History Tobacco Use Types [...] depression documented in this encounter Care Teams Grounds Manager Relationship Specialty Start Date End Date Henrietta Whitmore APRN-CNP [address] [place] [address] PCP - General Nurse Practitioner 08/04/21 documented as of this encounter
--- OUTSIDE RECORDS SUMMARY | 2025-01-17 16:20 | XMS_ITS | Encounter Summary ---
Author Organization [facility] Address [address] [place] [address] Care Team Providers Care Rug Cutter Helper Name Role Phone [facility] Primary Care Pr ovider Reason for Visit * Reason Onset Date Comments MEDICATION REFILL 11/20/2022 Encounter Details Date Type Department Care Team (Late st Contact Info) Description 11/20/2022 Refill [facility] Medical [facility] - Family Medicine [address] [place] [address] Henrietta [facility] [address] [place] [address] MEDICATION REFILL Social History Tobacco Use Types [...] depression documented in this encounter Care Teams Rug Cutter Helper Relationship Specialty Start Date End Date Henrietta Whitmore APRN-CNP [address] [place] [address] PCP - General Nurse Practitioner 08/04/21 documented as of this encounter
--- OUTSIDE RECORDS SUMMARY | 2025-01-17 16:20 | XMS_ITS | Encounter Summary ---
Author Organization [facility] Address [address] [place] [address] Care Team Providers Care Windsurfing Instructor Name Role Phone Henrietta Whitmore [facility] Primary Care Pr ovider Reason for Visit * Reason Onset Date Comments MEDICATION REFILL 11/21/2022 Encounter Details Date Type Department Care Team (Late st Contact Info) Description 11/21/2022 Refill [facility] Medical [facility] - Family Medicine [address] [place] [address] Henrietta Whitmore [facility] [address] [place] [address] MEDICATION REFILL Social History Tobacco Use Types [...] depression documented in this encounter Care Teams Windsurfing Instructor Relationship Specialty Start Date End Date Henrietta Whitmore APRN-CNP [address] [place] [address] PCP - General Nurse Practitioner 08/04/21 documented as of this encounter
--- OUTSIDE RECORDS SUMMARY | 2025-01-17 16:20 | XMS_ITS | Encounter Summary ---
Author Organization [facility] Address [address] [place] [address] Care Team Providers Care Skills Trainer Name Role Phone Henrietta Whitmore [facility] Primary Care Pr ovider Reason for Visit * Reason Onset Date Comments MEDICATION REFILL 07/12/2022 Encounter Details Date Type Department Care Team (Late st Contact Info) Description 07/12/2022 Refill [facility] Medical [facility] - Family Medicine [address] [place] [address] Henrietta Whitmore [facility] [address] [place] [address] MEDICATION REFILL Social History Tobacco Use Types [...] depression documented in this encounter Care Teams Skills Trainer Relationship Specialty Start Date End Date Henrietta Whitmore APRN-CNP [address] [place] [address] PCP - General Nurse Practitioner 08/04/21 documented as of this encounter
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
== END 2025-01-17 17:23 | disposition home or self-care (01) ==
PROVIDERS: Emergency Provider Emergency Medicine
DX: F41.9 Anxiety disorder, unspecified (principal); F32.A Depression, unspecified
CPT/HCPCS: 99283

== ENCOUNTER 2025-01-21 16:12 | Emergency (ER) | payer SELFPAY ==
--- NOTE | ~2025-01-21 | CT_ITS ---
EXAMINATION: CT abdomen pelvis w con DATE: 01/21/2025 20:10 INDICATION: Lower abdominal pain. Hematuria. TECHNIQUE: Computed tomography (CT) of the abdomen and pelvis was performed with 100 cc Omnipaque 350 intravenous contrast. The dose-length product was 401.29 mGy-cm. Automated exposure control and iter ative reconstruction technique were employed. Automated exposure control and iterative reconstruction technique were employed. COMPARISON: No prior studies for comparison. FINDINGS: Lung bases unremarkable. Heart size normal. No significant pleural or pericardial effusion. Fatty infiltration of the liver. The spleen, pancreas, adrenal glands and kidneys are unremarkable. Gallbladder is contracted. Nonobstructive bowel gas pattern. Normal appendix. No abnormal pelvic mass es or fluid collections. No significant vascular abnormality. No lymphadenopathy. No free air or free fluid. No acute osseous abnormality. IMPRESSION: 1. No acute abdominal abnormality. Reviewed, dictated and finalized at location B.
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
--- OUTSIDE RECORDS SUMMARY | 2025-01-21 16:14 | XMS_ITS | Encounter Summary ---
Author Organization [facility] Address [address] [place] [address] Care Team Providers Care Professor Of Environmental Science Name Role Phone Henrietta Whitmore APRN-ASSOCIATE DIRECTOR OF BIOSTATISTICS Primary Care Pr ovider Reason for Visit * Reason Onset Date Comments MEDICATION REFILL 07/12/2022 Encounter Details Date Type Department Care Team (Late Contact Info) Description 07/12/2022 Refill [facility] Family Medicine [address] [place] [phone] Henrietta Whitmore APRN-ASSOCIATE DIRECTOR OF BIOSTATISTICS [address] [place] [address] MEDICATION REFILL Social History Tobacco Use Types [...] as of this encounter Plan of Treatment Upcoming Encounters Date Type Department Care Team (Late Contact Info) Description 01/29/2025 10:15 AM CDT Office Visit [address] [phone] [facility] [address] [place] [address] 02/02/2025 10:45 AM CDT Office Visit [facility] - Family Medicine [address] [facility] [place] [phone] Henrietta Whitmore APRN-CNP [address] [place] [address] documented as of this encounter Visit Diagnoses Diagnosis Other depression documented in this encounter Care Teams Professor Of Environmental Science Relationship Specialty Start Date End Date Henrietta Whitmore APRN-CNP [address] [place] [address] PCP - General Nurse Practitioner 08/04/21 documented as of this encounter
--- OUTSIDE RECORDS SUMMARY | 2025-01-21 16:14 | XMS_ITS | Encounter Summary ---
Author Organization [facility] Address [address] [place] [address] Care Team Providers Care Federal Law Clerk Name Role Phone Henrietta Whitmore APRNARABIC LINGUIST Primary Care Pr ovider Reason for Visit * Reason Onset Date Comments MEDICATION REFILL 12/25/2022 Encounter Details Date Type Department Care Team (Late Contact Info) Description 12/25/2022 Refill [facility] Family Medicine [address] [place] [phone] Henrietta Whitmore APRN-ARABIC LINGUIST [address] [place] [address] MEDICATION REFILL Social History Tobacco Use Types [...] Description 01/29/2025 10:15 AM CDT Office Visit [address] [phone] [facility] [address] [place] [address] 02/02/2025 10:45 AM CDT Office Visit [facility] - Family Medicine [address] [place] [phone] Henrietta Whitmore APRN-CNP [address] [place] [address] documented as of this encounter Visit Diagnoses Diagnosis Other depression documented in this encounter Care Teams Federal Law Clerk Relationship Specialty Start Date End Date Henrietta Whitmore APRN-CNP [address] [place] [address] PCP - General Nurse Practitioner 08/04/21 documented as of this encounter
--- OUTSIDE RECORDS SUMMARY | 2025-01-21 16:14 | XMS_ITS | Encounter Summary ---
Author Organization [facility] Address [address] [place] [address] Care Team Providers Care Medical Surgical Tech Name Role Phone Henrietta Whitmore [facility] C[facility] DIRECTOR Primary Care Pr ovider Reason for Visit * Reason Onset Date Comments MEDICATION REFILL 11/20/2022 Encounter Details Date Type Department Care Team (Late Contact Info) Description 11/20/2022 Refill [facility] Family Medicine [address] [place] [phone] Henrietta Whitmore APRN-[facility] DIRECTOR [address] [place] [address] MEDICATION REFILL Social History Tobacco Use Types [...] Description 01/29/2025 10:15 AM CDT Office Visit [address] [phone] [facility] [address] [place] [address] 02/02/2025 10:45 AM CDT Office Visit [facility] - Family Medicine [address] [facility] [place] [phone] Henrietta Whitmore APRN-CNP [address] [place] [address] documented as of this encounter Visit Diagnoses Diagnosis Other depression documented in this encounter Care Teams Medical Surgical Tech Relationship Specialty Start Date End Date Henrietta Whitmore APRN-CNP [address] [place] [address] PCP - General Nurse Practitioner 08/04/21 documented as of this encounter
--- OUTSIDE RECORDS SUMMARY | 2025-01-21 16:14 | XMS_ITS | Clinical Summary ---
Author Organization [facility] Address [address] [place] [id number] Care Team Providers Care Chemist Intern Name Role Phone Unavailable Primary Care Provider [...]
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
--- OUTSIDE RECORDS SUMMARY | 2025-01-21 16:14 | XMS_ITS | Encounter Summary ---
Author Organization [facility] Address [address] [place] [address] Care Team Providers Care Sign Maintenance Name Role Phone Henrietta Whitmore APRNBODY AND FENDER WORKER Primary Care Pr ovider Reason for Visit * Reason Onset Date Comments MEDICATION REFILL 11/21/2022 Encounter Details Date Type Department Care Team (Late Contact Info) Description 11/21/2022 Refill [facility] Family Medicine [address] [place] [id number] Henrietta Whitmore APRN-BODY AND FENDER WORKER [address] [place] [address] MEDICATION REFILL Social History Tobacco Use Types [...] Description 01/29/2025 10:15 AM CDT Office Visit [address] [phone] [facility] [address] [place] [address] 02/02/2025 10:45 AM CDT Office Visit [facility] - Family Medicine [address] [facility] [place] [phone] Henrietta Whitmore APRN-CNP [address] [place] [address] documented as of this encounter Visit Diagnoses Diagnosis Other depression documented in this encounter Care Teams Sign Maintenance Relationship Specialty Start Date End Date Henrietta Whitmore APRN-CNP [address] [place] [address] PCP - General Nurse Practitioner 08/04/21 documented as of this encounter
--- OUTSIDE RECORDS SUMMARY | 2025-01-21 16:14 | XMS_ITS | Patient Health Record ---
Author Organization [facility] Address [address] [address] Care Team Providers Care Grocery Department Manager Name Role Phone LUZ CARLISLE Primary Care Provider Damon Neil Unavailable [phone] Reason For Referral No Information Social History [...]
[2025-01-21 16:27] VITALS: BP 128/81; PULSE 88; RESP 16; TEMP 36.8; O2SAT 96
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
[2025-01-21 17:45] VITALS: BP 117/90; PULSE 92; RESP 18; O2SAT 99
[2025-01-21 17:51] LABS: BEDSIDEPREGUCG Negative (Negative)
[2025-01-21 17:58] LABS: Add Urine Microscopic? YES; Appearance Urine Clear (Clear); Glucose Urine UA Negative (Negative); Leukocyte Esterase Ur 2+ LEU/UL (Negative); Nitrate Urine Negative (Negative); Non Pathogenic Casts 0-2; Specific Grav Ur 1.027 (1.001-1.035)
--- OUTSIDE RECORDS SUMMARY | 2025-01-21 17:58 | XMS_ITS | Encounter Summary ---
Author Organization [facility] Address [address] [place] [address] Care Team Providers Care Sizing Sponger Name Role Phone Henrietta Whitmore APRNTAG PRESS OPERATOR Primary Care Pr ovider Reason for Visit * Reason Onset Date Comments MEDICATION REFILL 12/25/2022 Encounter Details Date Type Department Care Team (Late Contact Info) Description 12/25/2022 Refill [facility] Family Medicine [address] [place] [phone] Henrietta Whitmore APRN-TAG PRESS OPERATOR [address] [place] [address] MEDICATION REFILL Social History Tobacco Use Types [...] Description 01/29/2025 10:15 AM CDT Office Visit [address] [phone] [facility] [address] [place] [address] 02/02/2025 10:45 AM CDT Office Visit [facility] - Family Medicine [address] [facility] [phone] Henrietta Whitmore APRN-CNP [address] [place] [address] documented as of this encounter Visit Diagnoses Diagnosis Other depression documented in this encounter Care Teams Sizing Sponger Relationship Specialty Start Date End Date Henrietta Whitmore APRN-CNP [address] [place] [address] PCP - General Nurse Practitioner 08/04/21 documented as of this encounter
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
--- OUTSIDE RECORDS SUMMARY | 2025-01-21 17:58 | XMS_ITS | Encounter Summary ---
Author Organization [facility] Address [address] [place] [address] Care Team Providers Care Life Consultant Name Role Phone Henrietta Whitmore APRNMACHINE DYER Primary Care Pr ovider Reason for Visit * Reason Onset Date Comments MEDICATION REFILL 11/21/2022 Encounter Details Date Type Department Care Team (Late Contact Info) Description 11/21/2022 Refill [facility] Family Medicine [address] [place] [phone] Henrietta Whitmore APRN-MACHINE DYER [address] [place] [address] MEDICATION REFILL Social History Tobacco Use Types [...] Description 01/29/2025 10:15 AM CDT Office Visit [address] [phone] [facility] [address] [place] [address] 02/02/2025 10:45 AM CDT Office Visit [facility] - Family Medicine [address] [place] [phone] Henrietta Whitmore APRN-CNP [address] [place] [address] documented as of this encounter Visit Diagnoses Diagnosis Other depression documented in this encounter Care Teams Life Consultant Relationship Specialty Start Date End Date Henrietta Whitmore APRN-CNP [address] [place] [address] PCP - General Nurse Practitioner 08/04/21 documented as of this encounter
--- OUTSIDE RECORDS SUMMARY | 2025-01-21 17:58 | XMS_ITS | Encounter Summary ---
Author Organization [facility] Address [address] [place] [address] Care Team Providers Care Gas Furnace Installer Name Role Phone Henrietta Whitmore APRNHSE MANAGER Primary Care Pr ovider Reason for Visit * Reason Onset Date Comments MEDICATION REFILL 11/20/2022 Encounter Details Date Type Department Care Team (Late Contact Info) Description 11/20/2022 Refill [facility] Family Medicine [address] [place] [phone] Henreitta Whitmore APRN-HSE MANAGER [address] [place] [address] MEDICATION REFILL Social History Tobacco Use Types [...] Description 01/29/2025 10:15 AM CDT Office Visit [address] [phone] [facility] [address] [place] [address] 02/02/2025 10:45 AM CDT Office Visit [facility] - Family Medicine [address] [facility] [place] [phone] Henrietta Whitmore APRN-CNP [address] [place] [address] documented as of this encounter Visit Diagnoses Diagnosis Other depression documented in this encounter Care Teams Gas Furnace Installer Relationship Specialty Start Date End Date Henrietta Whitmore APRN-CNP [address] [place] [address] PCP - General Nurse Practitioner 08/04/21 documented as of this encounter
--- OUTSIDE RECORDS SUMMARY | 2025-01-21 17:58 | XMS_ITS | Encounter Summary ---
Author Organization [facility] Address [address] [place] [address] Care Team Providers Care Direct Marketing Analyst Name Role Phone Henrietta Whitmore APRN-NUT TIGHTENER Primary Care Pr ovider Reason for Visit * Reason Onset Date Comments MEDICATION REFILL 07/12/2022 Encounter Details Date Type Department Care Team (Late Contact Info) Description 07/12/2022 Refill [facility] Family Medicine [address] [place] [phone] Henrietta Whitmore APRN-NUT TIGHTENER [address] [place] [address] MEDICATION REFILL Social History Tobacco Use Types [...] Description 01/29/2025 10:15 AM CDT Office Visit [address] [phone] [facility] [address] [place] [address] 02/02/2025 10:45 AM CDT Office Visit [facility] - Family Medicine [address] [place] [facility] [place] [phone] Henrietta Whitmore APRN-CNP [address] [place] [address] documented as of this encounter Visit Diagnoses Diagnosis Other depression documented in this encounter Care Teams Direct Marketing Analyst Relationship Specialty Start Date End Date Henrietta Whitmore APRN-CNP [address] [place] [address] PCP - General Nurse Practitioner 08/04/21 documented as of this encounter
--- OUTSIDE RECORDS SUMMARY | 2025-01-21 17:58 | XMS_ITS | Clinical Summary ---
Author Organization [facility] Address [address] [place] [address] Care Team Providers Care Trestle Mechanic Name Role Phone Unavailable Primary Care Provider [...]
[2025-01-21 18:01] LABS: Hematocrit 38.7 % (37.0-47.0); Hemoglobin 12.7 g/dL (12.0-15.0); Immature Granulocyte Percent A 0.2 % (0-0.5); Lymphocytes Absolute Auto 2.02 K/mm3 (0.9-3.2); Mean Corpuscular HGB Conc 32.8 g/dl (32-36); Mean Corpuscular Hemoglobin 28.8 pg (26-34); Mean Corpuscular Volume 87.8 fl (80-100); Nucleated Red Blood Cells Absolute Auto 0.000 K/mm3 (0.0-0.012); Nucleated Red Blood Cells Perc 0.0 % (0.0-0.2); Platelet Count Result 375 k/mm3 (150-375); Red Blood Count 4.41 M/mm3 (4.2-5.4); White Blood Count 12.1 K/mm3 (4.5-10.0)
[2025-01-21 18:24] LABS: Alanine Aminotransferase 23 U/L (6-35); Albumin Level 4.6 g/dL (3.5-5.1); Alkaline Phosphatase 63 U/L (38-126); Anion Gap 11 mmol/L (4-12); Aspartate Amino Transferase 25 U/L (14-36); Bilirubin,Total 0.4 mg/dL (0.2-1.3); Blood Urea Nitrogen 7 mg/dL (7-17); Calcium 8.9 mg/dL (8.4-10.2); Carbon Dioxide 24 mmol/L (22-30); Chloride 102 mmol/L (98-107); Estimated CRCL calculation 88 ml/min; Estimated Glomerular Filt Rate > 60; Glucose 87 mg/dL (65-110); Potassium 3.5 mmol/L (3.4-5.0); Sodium 137 mmol/L (137-145); Total Protein 7.6 g/dL (6.3-8.2)
[2025-01-21 18:47] LABS: Beta HCG Quantitative < 2.39 mIU/ML
[2025-01-21] MEDS: HYDROcodone/acetaminophen (*CRX) 5-325 MG TABLET 1 TAB PO (22:15)
[2025-01-21 22:55] VITALS: BP 139/96; PULSE 81; RESP 18; O2SAT 99
[2025-01-21] MEDS: SULFAMETHOXAZOLE/TRIMETHOPRIM 800/160 MG DS TABLET 1 TAB PO (23:43)
[2025-01-22 01:04] VITALS: BP 129/83; PULSE 76; RESP 18; O2SAT 97
== END 2025-01-22 01:05 | disposition home or self-care (01) ==
PROVIDERS: Registered Nurse; Emergency Provider Physician Assistant
DX: N30.01 Acute cystitis with hematuria (principal); R10.32 Left lower quadrant pain; R10.31 Right lower quadrant pain; S80.11XA Contusion of right lower leg, initial encounter; F41.9 Anxiety disorder, unspecified; F32.A Depression, unspecified; X58.XXXA Exposure to other specified factors, initial encounter
CPT/HCPCS: 36415; 74177; 80053; 81001; 81025; 84702; 85025; 87086; 93971; 99284; A9270; Q9967